=== PATIENT | female | born 1995 | race Caucasian/White ===

== ENCOUNTER 2018-02-08 19:22 | Emergency (ER) | payer OTHER ==
[2018-02-08 19:29] VITALS: BP 129/77
[2018-02-08] MEDS ORDERED: PROPARACAINE 0.5% OPHTH DROPS 15 ML EACHEYE STA (20:02)
[2018-02-08] MEDS ORDERED: ERYTHROMYCIN OPHTH OINT 1 GM TUBE LEFTEYE STA (20:07)
--- NOTE | 2018-02-08 20:09 | ED Physician Documentation ---
PD HPI OPHTHO - Stated complaint Stated Complaint: LT EYE PX - Chief complaint Chief Complaint: Heent - History obtained from History obtained from: Patient - History of Present Illness Timing - onset: Today (She scratched her left eye with her eye later this morning. No visual deficit for persistent discomfort. She does not wear contacts.) Review of Systems Eyes: reports: Photophobia, Discharge, Irritation. denies: Loss of vision, Decreased vision Ears: denies: Loss of hearing, Ear pain PD PAST MEDICAL HISTORY - Past Medical History Past Medical History: No - Past Surgical History Past Surgical History: No - Present Medications Home Medications: Ambulatory Orders Medication Instructions Recorded Confirmed Erythromycin Base [Erythromycin 1 applic OP 5XD #1 oint...g. 02/08/18 Ophthalmic Ointment] - Social History Does the pt smoke?: No Smoking Status: Never smoker Does the pt drink ETOH?: No Does the pt have substance abuse?: No - Immunizations Immunizations are current?: Yes PD ED PE NORMAL - Vitals Vital signs reviewed: Yes - General General: Alert and oriented X 3, No acute distress - HEENT HEENT: PERRL, EOMI, Other (On fluorescein examination there is a tiny corneal Abrasion superiorly just to the right of midline. Negative Fransisco sign.) - Neck Neck: Supple, no meningeal sign, No bony TTP - Neuro Neuro: Alert and oriented X 3, Normal speech Results - Vitals Vitals: Vital Signs - 24 hr 02/08/18 19:26 Temperature 36.4 C L Heart Rate 84 Respiratory 16 Rate Blood Pressure 129/77 O2 Saturation 100 Oxygen O2 Source Room air PD MEDICAL DECISION MAKING - Sepsis Event Vital Signs: Vital Signs - 24 hr 02/08/18 19:26 Temperature 36.4 C L Heart Rate 84 Respiratory 16 Rate Blood Pressure 129/77 O2 Saturation 100 Oxygen O2 Source Room air Departure - Departure Disposition: 01 Home, Self Care Clinical Impression: Corneal abrasion, left Qualifiers: Encounter type: initial encounter Qualified Code(s): S05.02XA - Injury of conjunctiva and corneal abrasion without foreign body, left eye, initial encounter Condition: Good Record reviewed to determine appropriate education?: Yes Instructions: ED Eye Injury Corneal Abrasion Follow-Up: Keith Basilio MD [Provider Admit Priv/Credential] - Within 3 Days (if not better ) Prescriptions: Erythromycin Base [Erythromycin Ophthalmic Ointment] 1 applic OP 5XD #1 oint...g.
== END 2018-02-08 20:20 | disposition home or self-care (01) ==
LOC: ED 19:22
DX: S05.02XA Injury of conjunctiva and corneal abrasion without foreign body, left eye, initial encounter (principal); X58.XXXA Exposure to other specified factors, initial encounter
CPT/HCPCS: 99283; J3490